=== PATIENT | male | born 1960 | race Caucasian/White ===

== ENCOUNTER 2020-01-12 09:11 | Outpatient (CLI) | payer OTHER, SELFPAY ==
--- NOTE | ~2020-01-12 | CT_ITS ---
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 The dose-length product (DLP) was 385.45 mGy-cm. Automated exposure control and iterative reconstruction technique were employed. COMPARISON: 03/11/2019, 05/30/2017 FINDINGS: CHEST CT: There are stable changes of esophagectomy and gastric pull-through. There is mild emphysema. Small pl eural effusions are stable. There is minimal dependent atelectasis. Stable nodules of the lung apices are most likely benign. No pathologically enlarged thoracic lymph nodes are identified. The heart si ze is normal. There is mild thoracic spondylosis. ABDOMEN/PELVIS CT: The liver, spleen, pancreas, gallbladder, and right adrenal gland are normal. There is a stable 1.3 c m adenoma of the left adrenal gland. A 1.6 cm cyst is present in the left kidney. The right kidney is normal. No pathologically enlarged abdominal or pelvic lymph nodes are identified. There is no free intraperitoneal gas or evidence of bowel obstruction. IMPRESSION: 1. No evidence of recurrent or metastatic disease. Reviewed, dictated and finalized at location A.
[2020-01-12 09:55] LABS: Estimated Glomerular Filt Rate > 60
== END 2020-01-12 09:12 | disposition home or self-care (01) ==
LOC: ANHIMG 09:22
PROVIDERS: PCP Family Medicine; Referring Provider Internal Medicine Medical Oncology; Visit Provider Radiology Radiation Oncology
DX: C15.5 Malignant neoplasm of lower third of esophagus (principal)
CPT/HCPCS: 36415; 71260; 74177; Q9967

== ENCOUNTER 2020-09-29 11:47 | Outpatient (CLI) | payer OTHER, SELFPAY ==
--- NOTE | ~2020-09-29 | US_ITS ---
EXAMINATION: US venous doppler LE RT EXAM DATE: 09/29/2020 12:29 INDICATION: Right leg edema. TECHNIQUE: Multiple grayscale, color flow and Doppler images of the right lower extremity deep venous system were obtained and reviewed. Comparison is made to prior examination from 04/24/2016. FINDINGS: The right common femoral, femoral and profunda veins demonstrate normal color flow, respira tory variation, augmentation and compressibility. Compressibility, color flow confirmed within the r ight popliteal, posterior tibial, peroneal, and greater saphenous veins. IMPRESSION: 1. No right lower extremity deep venous thrombosis. Reviewed, dictated and finalized at location B.
== END 2020-09-29 11:48 | disposition home or self-care (01) ==
LOC: ANHIMG 11:56
PROVIDERS: PCP Family Medicine; Visit Provider Family Medicine
DX: R60.0 Localized edema (principal); M25.50 Pain in unspecified joint
CPT/HCPCS: 93971

== ENCOUNTER 2021-02-01 13:21 | Outpatient (CLI) | payer OTHER, SELFPAY ==
--- NOTE | ~2021-02-01 | CT_ITS ---
EXAMINATION: CT chest abdomen pelvis w con EXAM DATE: 02/01/2021 13:51 INDICATION: Esophageal malignancy. TECHNIQUE: Spiral CT of the chest, abdomen and pelvis was performed following intravenous injection o f 100 mL Omnipaque 350. Axial, coronal and sagittal images chest, abdomen and pelvis were reviewed. Coronal maximum intensity pixel images of chest reviewed. The dose-length product (DLP) for this ex amination was 268.86 mGy-cm. The exposure was tailored according to patient size (auto mA exposure c ontrol), and iterative reconstruction (ASIR) was used as additional dose reduction technique. Compari son is made to prior examination from 01/12/2020. FINDINGS: CHEST: Gastroesophageal surgical changes, pull-through. No evidence of local recurrence. Chronic tr junior right pleural effusion and right lower lobe dependent atelectasis/scarring. Mild emphysema. Trac heobronchial tree is patent. There is no mediastinal, hilar or axillary lymphadenopathy. There is no pneumothorax. Heart normal in size. There is mild coronary arterial calcification, arterial s clerosis. ABDOMEN PELVIS: Left adrenal gland has approximately 1.5 cm nodule, stable. Could be adenoma. The cata er, spleen, and pancreas are unremarkable. Gallbladder is unremarkable. No biliary obstruction. Po rtal and splenic veins are patent. Kidneys enhance symmetrically. There is no hydronephrosis. The prostate is unremarkable. Some diffuse bladder wall thickening, could indicate chronic cystitis. Ac shelli cystitis not excludable. There is no retroperitoneal or pelvic lymphadenopathy. There is mild scattered arteriosclerotic disease. The appendix is normal. The stomach and small bowel are unremarkable. There is expected amount of c olonic stool. No free intraperitoneal gas. There are no osteoblastic or osteolytic lesions identi fied. IMPRESSION: No evidence local recurrence or metastatic disease. Reviewed, dictated and finalized at location A.
[2021-02-01 13:46] LABS: Estimated Glomerular Filt Rate > 60
== END 2021-02-01 13:22 | disposition home or self-care (01) ==
LOC: ANHIMG 13:23
PROVIDERS: PCP Family Medicine; Visit Provider Physician Assistant Medical
DX: C15.9 Malignant neoplasm of esophagus, unspecified (principal); R63.4 Abnormal weight loss
CPT/HCPCS: 71260; 74177; Q9967

== ENCOUNTER 2022-09-09 18:48 | Emergency (ER) | payer MEDICARE, OTHER, SELFPAY ==
--- NOTE | ~2022-09-09 | XR_ITS ---
XR tibia fibula LT 2V, XR ankle LT min 3V 09/09/2022 19:35 INDICATION: Left leg and ankle pain PROCEDURE: 2 views left tibia/fibula and 4 views left ankle COMPARISON: No prior studies for comparison. FINDINGS: Fracture, dislocation or subluxation is not identified. The soft tissues appear within norm al limits. No foreign bodies are identified. IMPRESSION: 1: NO ACUTE BONE OR JOINT ABNORMALITY IDENTIFIED. Reviewed, dictated and finalized at location A. IMPRESSION: 1: NO ACUTE BONE OR JOINT ABNORMALITY IDENTIFIED.
[2022-09-09 18:54] VITALS: BP 105/54; PULSE 107; RESP 16; TEMP 36.8; O2SAT 100
--- NOTE | 2022-09-09 20:35 | ED.LOWEXIN ---
HPI - Extremity Injury (Lower) General Chief Complaint: Extremity Injury, Lower <Dianna Negrete PA-C - Last Filed: 09/09/22 20:57> Stated Complaint: left leg pain <Dianna Negrete PA-C - Last Filed: 09/09/22 20:57> Time Seen by Provider: 09/09/22 20:27 <Dianna Negrete PA-C - Last Filed: 09/09/22 20:57> History of Present Illness HPI Narrative: 62-year-old male with a history of esophageal cancer reports for evaluation of left lower extremity pain for 5 days. Patient states 5 days ago, he was trying to step over the docs inside his house and hit his left anterior schmidt, then again the same thing happened 2 days later. He is reporting an abrasion to his left anterior schmidt, pain and edema to his schmidt and ankle. Reports he did not injure his ankle, the ecchymosis is secondary to gravity. He is unsure of his last tetanus shot. Patient did not hit his head or lose consciousness. Reports he has been ambulating at home with a cane. He has not taken anything for pain. He reports he is prescribed oxycodone for pain as needed. <Dianna Negrete PA-C - Last Filed: 09/09/22 20:57> Related Data Home Medications: Home Medications Medication Instructions Recorded Confirmed cardioplegic no.20 (maint 4:1) 20 ml perfusion 05/28/21 05/28/21 mEq/810 mL (potassium) perfusion (Cardioplegia Maintenance 4:1) furosemide 20 mg tablet 10 mg PO QAM 05/28/21 05/28/21 gabapentin 600 mg tablet 600 mg PO BID 05/28/21 05/28/21 megestrol 625 mg/5 mL (125 mg/mL) 625 mg PO DAILY 05/28/21 05/28/21 oral suspension mirtazapine 15 mg tablet 15 mg PO DAILY 05/28/21 05/28/21 omeprazole 40 mg capsule,delayed 40 mg PO BID 05/28/21 05/28/21 release oxycodone 5 mg capsule 5 mg PO Q8H PRN 05/28/21 05/28/21 pramipexole 1 mg tablet 1 mg PO QHS 05/28/21 05/28/21 sumatriptan succinate 100 mg tablet 100 mg PO ONCE 05/28/21 05/28/21 <Dianna Negrete PA-C - Last Filed: 09/09/22 20:57> Allergies/Adverse Reactions: Allergies Allergy/AdvReac Type Severity Reaction Status Date / Time No Known Allergies Allergy Verified 05/28/21 09:03 <Dianna Negrete PA-C - Last Filed: 09/09/22 20:57> Review of Systems Review of Systems: CONSTITUTIONAL: Denies fever, chills EYES: Denies visual changes, redness, or discharge. ENT: Denies rhinorrhea, congestion, sore throat, or otalgia. CARDIOVASCULAR: Denies chest pain, palpitations, or edema. RESPIRATORY: Denies cough or dyspnea. GASTROINTESTINAL: Denies abdominal pain, nausea, vomiting, or diarrhea. GENITOURINARY: Denies dysuria or hematuria. SKIN: Denies rash or itching. MUSCULOSKELETAL: See HPI NEUROLOGIC: Denies headache, numbness, dizziness, or weakness. PSYCHIATRIC: Denies anxiety or depression. <Dianna Negrete PA-C - Last Filed: 09/09/22 20:57> PMFSH Past Medical History Medical History: Medical History Esophageal cancer Head ache <Dianna Negrete PA-C - Last Filed: 09/09/22 20:57> Social History Social History: Social History Smoking packs per day: 5 Smoking cigarettes per day: 100.0 Smoking status: Current some day smoker Alcohol intake: current Alcohol use details: social Substance use: never <Dianna Negrete PA-C - Last Filed: 09/09/22 20:57> Exam Narrative: GENERAL: Well-appearing, well-nourished, and in no acute distress. Patient resting comfortably in the exam bed. He is pleasant and conversational. HEAD: Normocephalic, atraumatic. EYES: PERRLA and EOMI. ENT: Nares clear, no rhinorrhea or epistaxis. Mucous membranes moist. Oropharynx without tonsillar hypertrophy exudate or other lesions. NECK: Supple. No adenopathy or masses. CHEST: Clear to auscultation. No respiratory distress. No wheezes rales or rhonchi HEART: Regular rate and rhythm. No murmur heard. Normal peripheral pulses. EXTREMIT
[2022-09-09] MEDS: ACETAMINOPHEN 500 MG TABLET 1000 MG PO (20:50)
[2022-09-09] MEDS: TETANUS,DIPHTHERIA,AC PERTUSSIS ADULT (0.5 ML) BOOSTRIX IM (20:51)
[2022-09-09] MEDS: CYCLOBENZAPRINE HCL 10 MG TABLET PO (20:51)
[2022-09-09 21:03] VITALS: BP 109/59; PULSE 84; RESP 16; O2SAT 99
== END 2022-09-09 21:06 | disposition home or self-care (01) ==
PROVIDERS: Emergency Provider Physician Assistant; PCP Family Medicine
DX: S80.12XA Contusion of left lower leg, initial encounter (principal); Z23 Encounter for immunization; F17.210 Nicotine dependence, cigarettes, uncomplicated; W22.8XXA Striking against or struck by other objects, initial encounter
CPT/HCPCS: 73590; 73610; 90471; 90715; 99283; A9270

== ENCOUNTER 2024-08-20 16:30 | Emergency (ER) | payer MEDICARE, OTHER, SELFPAY ==
--- NOTE | ~2024-08-20 | XR_ITS ---
XR shoulder LT min 2V Ordering provider: Suellen Arce PA-C History: . fall . Comparison: July 31, 2016 FINDINGS: BONES: Fracture of the proximal metaphysis of the left humerus. JOINT SPACES: The acromioclavicular joint is normal. The glenohumeral joint is normal. SOFT TISSUES: Left pleural effusion with adjacent atelectasis. IMPRESSION: Fracture of the surgical neck of the left humerus. Reviewed, dictated and finalized at location A.
--- NOTE | ~2024-08-20 | XR_ITS ---
XR elbow LT 2V Ordering provider: Nolan Daniel MD History: . fall, skin tear . Comparison: None. FINDINGS: BONES: No acute fracture or dislocation. JOINT SPACES: Normal. SOFT TISSUES: Normal. No definite joint effusion. IMPRESSION: No acute osseous abnormality left elbow. Reviewed, dictated and finalized at location A.
[2024-08-20 16:31] VITALS: BP 96/50; PULSE 79; RESP 18; TEMP 36.4; O2SAT 98
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
--- OUTSIDE RECORDS SUMMARY | 2024-08-20 16:32 | XMS_ITS | Continuity of Care Document ---
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 Location Location Details Encounter Type Encounter Number Reason For Visit Attending Provider ADM Date DC Date Status Disposition Source [facility] Outpatient Encounter [id number] 7 01/12 [facility] N
--- OUTSIDE RECORDS SUMMARY | 2024-08-20 16:32 | XMS_ITS | Data Portability ---
Author Organization [facility] [employer], Main Office Address [address] [place] [address] Assessment No assessment recorded. Plan of Treatment Reminders Order Date Submit Date Provider Last Modified By Organization Details Last Modified Time Details Appointments Any 2024 08:00A Connie Gerber NP Not available Not available Not available Lab glycohemo globin, total, blood [address] [place] [address] (Lab), [address] [place], [address], 06/21/2024 08:06:14 vitamin D, 25-hydrox y, total, serum [email or web address] [place] [address] (Lab), [address] [place], [address], 06/21/2024 08:06:14 lipid panel, serum 2024 [email or web address] [place] [address] (Lab), [address] [place], [address], 06/21/2024 08:06:15 CMP, serum or plasma 2024 [email or web address] [place] [address] (Lab), [address] [place], [address], 06/21/2024 08:06:15 CBC w/ auto diff 2024 [email or web address] [place] [address] (Lab), [address] [place], [address], 06/21/2024 08:06:14 iron + total iron-bind ing capacity (TIBC), serum [address] (Lab), [address] [place], [address], 06/21/2024 08:06:14 PSA, serum or plasma [address] (Lab), [address] [place], [address], 06/21/2024 08:06:14 testoster one, free + total, serum [address] (Lab), [address] [place], [address], 05/04/2024 11:59:42 TSH, serum or plasma [address] (Lab), [address] [place], [address], 05/04/2024 11:58:40 T3, free, serum or plasma [address] (Lab), [address] [place], [address], 05/04/2024 10:32:02 vitamin B1 (thiamine ), blood 2023 024 Not available 08/21/2023 09:59:36 vitamin D3, 25-hydrox y, serum 2023 024 Not available 08/21/2023 10:00:34 BMP, serum or plasma 2023 024 Not available 08/21/2023 10:00:13 magnesium , serum or plasma 2023 024 Not available 08/21/2023 10:00:23 CBC w/ auto diff 2023 024 Not available 08/21/2023 10:00:44 ferritin, serum or plasma 2023 024 Not available 08/21/2023 10:00:56 iron + total iron-bind ing capacity (TIBC), serum 2023 024 Not available 08/21/2023 10:01:07 vitamin B12, serum 2023 024 Not available 08/21/2023 10:00:02 vitamin B1 (thiamine ), blood 2022 023 77 Not available 04/29/2023 07:50:14 BMP, serum or plasma 2022 023 [email or web address] Not available 04/22/2023 19:44:03 magnesium , serum or plasma 2022 023 ZABRINA Not available 04/22/2023 19:44:48 CBC w/ auto diff 2022 023 ZABRINA Not available 04/22/2023 20:09:02 ferritin, serum or plasma 2022 023 ZABRINA Not available 04/22/2023 20:16:23 iron + total iron-bind ing capacity (TIBC), serum 2022 023 ZABRINA Not available 04/22/2023 19:43:27 vitamin D3, 25-hydrox y, serum 2022 023 ZABRINA Not available 04/22/2023 20:42:22 vitamin B12, serum 2022 023 ZABRINA Not available 04/22/2023 20:31:43 Referral physical therapist referral - *Please call pt to schedule* 2023 024 ZABRINA [facility] [address] , [place], [address], 01/11/2024 12:48:[address] referral - Please call patient to schedule an appointme nt. Thank you. [email or web address] [facility] [address], [place], [address], 02/02/2024 08:47:56 Procedures nerve conductio n study/EMG , upper extremity (PROC) 2023 024 [email or web address] Not available 04/01/2024 09:27:20 Surgeries None recorded. Imaging None recorded. Medication Orders cyprohept adine 4 mg tablet 2023 024 [id number], [address], [place], [place], [id number], 05/04/2024 10:21:08 cyanocoba laney (vit B-12) 1,000 mcg/mL injection solution 2023 024 [email or web address] 77 Not available 06/14/2024 08:47:28 cyanocoba laney (vit B-12) 1,000 mcg/mL injection solution 2022 023 [email or web address] 77 Not available 06/14/2024 08:47:28 Patient TargetsNo targets recorded. Patient InstructionsNo instructions recorded. Reason for Referral Physical Therapist Referral for Weakness of left hand eval and treat left wrist/hand weakness *Please call pt to schedule* Referring Physician: [facility], Encounter Date: 01/02/2024 Neurologist Referral for [place] of left hand new weakness to left hand Please call patient to schedule an appointment. Thank you. Referring Physician: [facility], Encounter Date: 01/02/2024 Results Created Date Observation Date Name Description Value Unit Range Abnormal Flag Note LastModifiedBy Organization Detail LastModifiedTime 04/22/20 23 04/22/2023 TEST NOT PERFO RMED test not performed SEE COMMEN T VITAM IN B1 NOT PERFO RMED. SPECI MEN NOT PROTE CTED FROM LIGHT PLEAS E RECOL LECT Not Available [facility] (Lab) [address] [place], [address], 04/22/2023 19:26:29 04/22/2004/22/2023 IRON/ TIBC PANEL total iron binding capacity 332 mcg/d L 265-47 5 Not Available [facility] (Lab) [address] [place], [address], 04/22/2023 19:52:13 04/22/20 23 04/22/2023 IRON/ TIBC PANEL % transferrin saturation 17 % 20-55 low Not Available [facility] (Lab) [address] [place], [address], 04/22/2023 19:52:13 04/22/20 23 04/22/2023 IRON/ TIBC PANEL unsaturated iron bind capacity 274 mcg/d L 126-38 2 Not Available [facility] (Lab) [address] [place], [address], 04/22/2023 19:52:13 04/22/20 23 04/22/2023 IRON/ TIBC PANEL iron 58 mcg/d L 42-175 Not Available [facility] (Lab) [address] [place], [address], 04/22/2023 19:52:13 04/22/20 23 04/22/2023 BASIC METAB OLIC PANEL sodium 138 mmol/ L 137-14 5 Not Available [facility] (Lab) [address] [place], [address], 04/22/2023 19:44:03 04/22/20 23 04/22/2023 BASIC METAB OLIC PANEL potassium 3.7 mmol/ L 3.5-5. 1 Not Available [facility] (Lab) [address] [place], [address], 04/22/2023 19:44:03 04/22/20 23 04/22/2023 BASIC METAB OLIC PANEL chloride 104 mmol/ L 98-107 Not Available [facility] (Lab) [address] [place], [address], 04/22/2023 19:44:03 04/22/20 23 04/22/2023 BASIC METAB OLIC PANEL carbon dioxide 30 mmol/ L 22-30 Not Available [facility] (Lab) [address] [place], [address], 04/22/2023 19:44:03 04/22/20 23 04/22/2023 BASIC METAB OLIC PANEL anion gap 7.7 mmol/ L 14-22 low Not Available [facility] (Lab) [address] [place], [address], 04/22/2023 19:44:03 04/22/20 23 04/22/2023 BASIC METAB OLIC PANEL glucose 104 mg/dL 70-99 high Not Available [facility] (Lab) [address] [place], [address], 04/22/2023 19:44:03 04/22/20 23 04/22/2023 BASIC METAB OLIC PANEL BUN 13 mg/dL 8-19 Not Available [facility] (Lab) [address] [place], [address], 04/22/2023 19:44:03 04/22/20 23 04/22/2023 BASIC METAB OLIC PANEL creatinine 0.66 mg/dL 0.66-1 .25 Not Available [facility] (Lab) [address] [place], [address], 04/22/2023 19:44:03 04/22/20 23 04/22/2023 BASIC METAB OLIC PANEL GFR >60 Refer ence Range : [place] GFR Healt hy Adult : >60 mL/mi n/1.7 3 m2 Chron ic Kidne y Disea se: 15-60 mL/mi n/1.7 3 m2 Kidne y Failu re: <15/m L/min /1.73 m2 www.n iddk. nih.g ov The MDRD study equat ion has not been valid ated in child nataliya <18 years of age; pregn ant women ; the elder ly >85 years of age; or in some racia l or ethni c subgr oups, such as Hispa nics. Outsi de the valid ated qiana eters , estim ated GFR is less accur ate, requi ring clini karri judgm ent on a case- by-ca se basis . Clini karri inter preta tion for other races and ages must be made by the clini mic. The MDRD study equat ion has not been valid ated for the evalu ation of serum creat inine relat ed to nutri ana l statu s or medic ation usage . For perso ns <18 years of age, a pedia tric GFR calcu lator is avail able on the [facility] websi te: https ://aleksandar w.kid shadia.o rg/pr ofess ional s/kdo qi/gf r_cal culat or Not Available [facility] (Lab) [address] [place], [address], 04/22/2023 19:44:03 04/22/20 23 04/22/2023 BASIC METAB OLIC PANEL calcium 9.1 mg/dL 8.4-10 .2 Not Available [facility] (Lab) [address] [place], [address], 04/22/2023 19:44:03 04/22/20 23 04/22/2023 MAGNE SIUM magnesium 2.0 mg/dL 1.6-2. 3 Not Available [facility] (Lab) [address] [place], [address], 04/22/2023 19:44:48 04/22/20 23 04/22/2023 CBC/C OMPLE TE BLD COUNT W/DIF F white blood cells 4.7 x10'3 /uL 4.2-10 .8 Not Available [facility] (Lab) [address] [place], [address], 04/22/2023 20:09:02 04/22/20 23 04/22/2023 CBC/C OMPLE TE BLD COUNT W/DIF F red blood cells 4.07 x10'6 /uL 4.10-5 .80 low Not Available [facility] (Lab) [address] [facility] [place], [address], 04/22/2023 20:09:02 04/22/20 23 04/22/2023 CBC/C OMPLE TE BLD COUNT W/DIF F hemoglobin 12.8 g/dL 13.2-1 7.0 low Not Available [facility] (Lab) [address] [place], [address], 04/22/2023 20:09:02 04/22/20 23 04/22/2023 CBC/C OMPLE TE BLD COUNT W/DIF F hematocrit 39.1 % 39.3-5 0.0 low Not Available [facility] (Lab) [address] [place], [address], 04/22/2023 20:09:02 04/22/20 23 04/22/2023 CBC/C OMPLE TE BLD COUNT W/DIF F mean red cell volume 96.1 fL 80.0-9 7.0 Not Available [facility] (Lab) [address] [place], [address], 04/22/2023 20:09:02 04/22/20 23 04/22/2023 CBC/C OMPLE TE BLD COUNT W/DIF F mean red cell hemoglobin 31.4 pg 27.0-3 3.0 Not Available [facility] (Lab) [address] [place], [address], 04/22/2023 20:09:02 04/22/20 23 04/22/2023 CBC/C OMPLE TE BLD COUNT W/DIF F mean RBC HGB concentratio n 32.7 g/dL 31.0-3 6.0 Not Available [facility] (Lab) [address] [place], [address], 04/22/2023 20:09:02 04/22/20 23 04/22/2023 CBC/C OMPLE TE BLD COUNT W/DIF F red cell distribution width 15.3 % 11.8-1 5.5 Not Available [facility] (Lab) [address] [place], [address], 04/22/2023 20:09:02 04/22/20 23 04/22/2023 CBC/C OMPLE TE BLD COUNT W/DIF F platelets 238 x10'3 /uL 150-40 0 Not Available [facility] (Lab) [address] [place], [address], 04/22/2023 20:09:02 04/22/20 23 04/22/2023 CBC/C OMPLE TE BLD COUNT W/DIF F mean platelet volume 11.2 fL 9.0-12 .4 Not Available [facility] (Lab) [address] [place], [address], 04/22/2023 20:09:02 04/22/20 23 04/22/2023 CBC/C OMPLE TE BLD COUNT W/DIF F neutrophils 59.3 % 39.0-7 2.0 Not Available [facility] (Lab) [address] [place], [address], 04/22/2023 20:09:02 04/22/20 23 04/22/2023 CBC/C OMPLE TE BLD COUNT W/DIF F lymphocytes 23.9 % 16.0-4 7.0 Not Available [facility] (Lab) [address] [facility] [place], [address], 04/22/2023 20:09:02 04/22/20 23 04/22/2023 CBC/C OMPLE TE BLD COUNT W/DIF F monocytes 11.0 % 5.0-12 .0 Not Available [facility] (Lab) [address] [place], [address], 04/22/2023 20:09:02 04/22/2004/22/2023 CBC/C OMPLE TE BLD COUNT W/DIF F eosinophils 4.5 % 1.0-7. 0 Not Available [facility] (Lab) [address] [facility] [place], [address], 04/22/2023 20:09:02 04/22/20 23 04/22/2023 CBC/C OMPLE TE BLD COUNT W/DIF F basophils 1.1 % 0.0-2. 0 Not Available [facility] (Lab) [address] [facility] [place], [address], 04/22/2023 20:09:02 04/22/20 23 04/22/2023 CBC/C OMPLE TE BLD COUNT W/DIF F immature granulocytes 0.2 % 0.00-0 .50 Not Available [facility] (Lab) [address] [facility] [place], [address], 04/22/2023 20:09:02 04/22/20 23 04/22/2023 CBC/C OMPLE TE BLD COUNT W/DIF F neutrophils, absolute count 2.76 x10'3 /uL 1.5-8. 0 Not Available [facility] (Lab) [address] [place], [address], 04/22/2023 20:09:02 04/22/20 23 04/22/2023 CBC/C OMPLE TE BLD COUNT W/DIF F lymphocytes, absolute count 1.11 x10'3 /uL 1.07-3 .43 Not Available [facility] (Lab) [address] [place], [address], 04/22/2023 20:09:02 04/22/20 23 04/22/2023 CBC/C OMPLE TE BLD COUNT W/DIF F monocytes, absolute count 0.51 x10'3 /uL 0.29-0 .99 Not Available [facility] (Lab) [address] [place], [address], 04/22/2023 20:09:02 04/22/20 23 04/22/2023 CBC/C OMPLE TE BLD COUNT W/DIF F eosinophils, absolute count 0.21 x10'3 /uL 0.02-0 .53 Not Available [facility] (Lab) [address] [place], [address], 04/22/2023 20:09:02 04/22/20 23 04/22/2023 CBC/C OMPLE TE BLD COUNT W/DIF F basophils, absolute count 0.05 x10'3 /uL 0.01-0 .08 Not Available [facility] (Lab) [address] [place], [address], 04/22/2023 20:09:02 04/22/20 23 04/22/2023 CBC/C OMPLE TE BLD COUNT W/DIF F immature granulocytes ,absolute 0.01 x10'3 /uL 0.00-0 .05 Not Available [facility] (Lab) [address] [place], [address], 04/22/2023 20:09:02 04/22/20 23 04/22/2023 CBC/C OMPLE TE BLD COUNT W/DIF F nucleated red blood cells 0.0 % -0 Not Available [facility] (Lab) [address] [place], [address], 04/22/2023 20:09:02 04/22/20 23 04/22/2023 CBC/C OMPLE TE BLD COUNT W/DIF F NRBC# 0.00 x10'3 /uL Not Available [facility] (Lab) [address] [place], [address], 04/22/2023 20:09:02 04/22/20 23 04/22/2023 DEE TIN ferritin 19 NG/mL 17.9-4 64 Not Available [facility] (Lab) [address] [place], [address], 04/22/2023 20:16:23 04/22/20 23 04/22/2023 VITAM IN B12 (ESE LANEY ) vb12 416 pg/mL 239-93 1 Not Available [facility] (Lab) [address] [place], [address], 04/22/2023 20:31:43 04/22/20 23 04/22/2023 VITAM IN D 25-HY DROXY vd25oh 28.1 NG/mL 30-100 low Vitam in D Statu s: Defic ient: <20 ng/mL Insuf ficie nt: 20-29 ng/mL Suffi cient : 30-10 0 ng/mL Not Available [facility] (Lab) [address] [place], [address], 04/22/2023 20:42:22 08/21/19 24 08/21/2023 BASIC METAB OLIC PANEL sodium 141 mmol/ L 137-14 5 Not Available [facility] (Lab) [address] [place], [address], 08/21/2023 21:16:42 08/21/19 24 08/21/2023 BASIC METAB OLIC PANEL potassium 4.0 mmol/ L 3.5-5. 1 Not Available [facility] (Lab) [address] [place], [address], 08/21/2023 21:16:42 08/21/19 24 08/21/2023 BASIC METAB OLIC PANEL chloride 106 mmol/ L 98-107 Not Available [facility] (Lab) [address] [place], [address], 08/21/2023 21:16:42 08/21/19 24 08/21/2023 BASIC METAB OLIC PANEL carbon dioxide 31 mmol/ L 22-30 high Not Available [facility] (Lab) [address] [place], [address], 08/21/2023 21:16:42 08/21/19 24 08/21/2023 BASIC METAB OLIC PANEL anion gap 8.0 mmol/ L 14-22 low Not Available [facility] (Lab) [address] [place], [address], 08/21/2023 21:16:42 08/21/19 24 08/21/2023 BASIC METAB OLIC PANEL glucose 95 mg/dL 70-99 Not Available [facility] (Lab) [address] [place], [address], 08/21/2023 21:16:42 08/21/19 24 08/21/2023 BASIC METAB OLIC PANEL BUN 13 mg/dL 8-19 Not Available [facility] (Lab) [address] [place], [address], 08/21/2023 21:16:42 08/21/19 24 08/21/2023 BASIC METAB OLIC PANEL creatinine 0.67 mg/dL 0.66-1 .25 Not Available [facility] (Lab) [address] [place], [address], 08/21/2023 21:16:42 08/21/19 24 08/21/2023 BASIC METAB OLIC PANEL GFR >60 Refer ence Range : [place] GFR Healt hy Adult : >60 mL/mi n/1.7 3 m2 Chron ic Kidne y Disea se: 15-60 mL/mi n/1.7 3 m2 Kidne y Failu re: <15/m L/min /1.73 m2 www.n iddk. nih.g ov The MDRD study equat ion has not been valid ated in child nataliya <18 years of age; pregn ant women ; the elder ly >85 years of age; or in some racia l or ethni c subgr oups, such as Hispa nics. Outsi de the valid ated qiana eters , estim ated GFR is less accur ate, requi ring clini karri judgm ent on a case- by-ca se basis . Clini karri inter preta tion for other races and ages must be made by the clini mci. The MDRD study equat ion has not been valid ated for the evalu ation of serum creat inine relat ed to nutri ana l statu s or medic ation usage . For perso ns <18 years of age, a pedia tric GFR calcu lator is avail able on the [facility] websi te: https ://ww w.kid shadia.o rg/pr ofess ional s/kdo qi/gf r_cal culat or Not Available [facility] (Lab) [address] [place], [address], 08/21/2023 21:16:42 08/21/19 24 08/21/2023 BASIC METAB OLIC PANEL calcium 9.0 mg/dL 8.4-10 .2 Not Available [facility] (Lab) [address] [place], [address], 08/21/2023 21:16:42 08/21/19 24 08/21/2023 MAGNE SIUM magnesium 1.9 mg/dL 1.6-2. 3 Not Available [facility] (Lab) [address] [place], [address], 08/21/2023 21:16:47 08/21/19 24 08/21/2023 VITAM IN D 25-HY DROXY vd25oh 14.8 NG/mL 30-100 low Vitam in D Statu s: Defic ient: <20 ng/mL Insuf ficie nt: 20-29 ng/mL Suffi cient : 30-10 0 ng/mL Not Available [facility] (Lab) [address] [place], [address], 08/21/2023 21:49:00 08/21/19 24 08/21/2023 IRON/ TIBC PANEL total iron binding capacity 336 mcg/d L 265-47 5 Not Available [facility] (Lab) [address] [place], [address], 08/21/2023 22:00:21 08/21/19 24 08/21/2023 IRON/ TIBC PANEL % transferrin saturation 31 % 20-55 Not Available [facility] (Lab) [address] [place], [address], 08/21/2023 22:00:21 08/21/19 24 08/21/2023 IRON/ TIBC PANEL unsaturated iron bind capacity 233 mcg/d L 126-38 2 Not Available [facility] (Lab) [address] [place], [address], 08/21/2023 22:00:21 08/21/19 24 08/21/2023 IRON/ TIBC PANEL iron 103 mcg/d L 42-175 Not Available [facility] (Lab) [address] [place], [address], 08/21/2023 22:00:21 08/21/19 24 08/21/2023 DEE TIN ferritin 23 NG/mL 17.9-4 64 Not Available [facility] (Lab) [address] [place], [address], 08/21/2023 22:07:49 08/21/19 24 08/21/2023 VITAM IN B12 (ESE LANEY ) vb12 898 pg/mL 239-93 1 Not Available [facility] (Lab) [address] [place], [address], 08/21/2023 22:26:05 08/21/19 24 08/21/2023 CBC/C OMPLE TE BLD COUNT W/DIF F white blood cells 4.9 x10'3 /uL 4.2-10 .8 Not Available [facility] (Lab) [address] [place], [address], 08/22/2023 00:19:48 08/21/19 24 08/21/2023 CBC/C OMPLE TE BLD COUNT W/DIF F red blood cells 3.99 x10'6 /uL 4.10-5 .80 low Not Available [facility] (Lab) [address] [place], [address], 08/22/2023 00:19:48 08/21/19 24 08/21/2023 CBC/C OMPLE TE BLD COUNT W/DIF F hemoglobin 12.7 g/dL 13.2-1 7.0 low Not Available [facility] (Lab) [address] [place], [address], 08/22/2023 00:19:48 08/21/19 24 08/21/2023 CBC/C OMPLE TE BLD COUNT W/DIF F hematocrit 37.2 % 39.3-5 0.0 low Not Available [facility] (Lab) [address] [place], [address], 08/22/2023 00:19:48 08/21/19 24 08/21/2023 CBC/C OMPLE TE BLD COUNT W/DIF F mean red cell volume 93.2 fL 80.0-9 7.0 Not Available [facility] (Lab) [address] [place], [address], 08/22/2023 00:19:48 08/21/19 24 08/21/2023 CBC/C OMPLE TE BLD COUNT W/DIF F mean red cell hemoglobin 31.8 pg 27.0-3 3.0 Not Available [facility] (Lab) [address] [place], [address], 08/22/2023 00:19:48 08/21/19 24 08/21/2023 CBC/C OMPLE TE BLD COUNT W/DIF F mean RBC HGB concentratio n 34.1 g/dL 31.0-3 6.0 Not Available [facility] (Lab) [address] [place], [address], 08/22/2023 00:19:48 08/21/19 24 08/21/2023 CBC/C OMPLE TE BLD COUNT W/DIF F red cell distribution width 14.0 % 11.8-1 5.5 Not Available [facility] (Lab) [address] [place], [address], 08/22/2023 00:19:48 08/21/19 24 08/21/2023 CBC/C OMPLE TE BLD COUNT W/DIF F platelets 249 x10'3 /uL 150-40 0 Not Available [facility] (Lab) [address] [place], [address], 08/22/2023 00:19:48 08/21/19 24 08/21/2023 CBC/C OMPLE TE BLD COUNT W/DIF F mean platelet volume 10.7 fL 9.0-12 .4 Not Available [facility] (Lab) [address] [place], [address], 08/22/2023 00:19:48 08/21/19 24 08/21/2023 CBC/C OMPLE TE BLD COUNT W/DIF F neutrophils 66.5 % 39.0-7 2.0 Not Available [facility] (Lab) [address] [place], [address], 08/22/2023 00:19:48 08/21/19 24 08/21/2023 CBC/C OMPLE TE BLD COUNT W/DIF F lymphocytes 19.0 % 16.0-4 7.0 Not Available [facility] (Lab) [address] [place], [address], 08/22/2023 00:19:48 08/21/19 24 08/21/2023 CBC/C OMPLE TE BLD COUNT W/DIF F monocytes 9.2 % 5.0-12 .0 Not Available [facility] (Lab) [address] [place], [address], 08/22/2023 00:19:48 08/21/19 24 08/21/2023 CBC/C OMPLE TE BLD COUNT W/DIF F eosinophils 3.9 % 1.0-7. 0 Not Available [facility] (Lab) [address] [place], [address], 08/22/2023 00:19:48 08/21/19 24 08/21/2023 CBC/C OMPLE TE BLD COUNT W/DIF F basophils 1.2 % 0.0-2. 0 Not Available [facility] (Lab) [address] [place], [address], 08/22/2023 00:19:48 08/21/19 24 08/21/2023 CBC/C OMPLE TE BLD COUNT W/DIF F immature granulocytes 0.2 % 0.00-0 .50 Not Available [facility] (Lab) [address] [place], [address], 08/22/2023 00:19:48 08/21/19 24 08/21/2023 CBC/C OMPLE TE BLD COUNT W/DIF F neutrophils, absolute count 3.25 x10'3 /uL 1.5-8. 0 Not Available [facility] (Lab) [address] [place], [address], 08/22/2023 00:19:48 08/21/19 24 08/21/2023 CBC/C OMPLE TE BLD COUNT W/DIF F lymphocytes, absolute count 0.93 x10'3 /uL 1.07-3 .43 low Not Available [facility] (Lab) [address] [place], [address], 08/22/2023 00:19:48 08/21/19 24 08/21/2023 CBC/C OMPLE TE BLD COUNT W/DIF F monocytes, absolute count 0.45 x10'3 /uL 0.29-0 .99 Not Available [facility] (Lab) [address] [place], [address], 08/22/2023 00:19:48 08/21/19 24 08/21/2023 CBC/C OMPLE TE BLD COUNT W/DIF F eosinophils, absolute count 0.19 x10'3 /uL 0.02-0 .53 Not Available [facility] (Lab) [address] [place], [address], 08/22/2023 00:19:48 08/21/19 24 08/21/2023 CBC/C OMPLE TE BLD COUNT W/DIF F basophils, absolute count 0.06 x10'3 /uL 0.01-0 .08 Not Available [facility] (Lab) [address] [place], [address], 08/22/2023 00:19:48 08/21/19 24 08/21/2023 CBC/C OMPLE TE BLD COUNT W/DIF F immature granulocytes ,absolute 0.01 x10'3 /uL 0.00-0 .05 Not Available [facility] (Lab) [address] [place], [address], 08/22/2023 00:19:48 08/21/19 24 08/21/2023 CBC/C OMPLE TE BLD COUNT W/DIF F nucleated red blood cells 0.0 % -0 Not Available [facility] (Lab) [address] [place], [address], 08/22/2023 00:19:48 08/21/19 24 08/21/2023 CBC/C OMPLE TE BLD COUNT W/DIF F NRBC# 0.00 x10'3 /uL Not Available [facility] (Lab) [address] [place], [address], 08/22/2023 00:19:48 08/21/19 24 08/25/2023 TEST NOT PERFO RMED test not performed COMMEN T VITAM IN B1 TESTI NG NOT PERFO RMED. NO SUITA BLE SPECI MEN RECEI TRAVON. Not Available [facility] (Lab) [address] [place], [address], 08/25/2023 17:17:49 Result Notes None recorded. Problems Name Problem SNOMED Code Status Onset Date Resolution Date Notes Provider Name and Address Organization Details Recorded Time Tobacco user 619905657 Active Not Available [facility] 3 02:53:04 Disorder of shoulder 703990779 Active Not Available [facility] 3 02:53:04 Liver function tests outside reference range 933278407 Active Not Available [facility] 3 02:53:04 Benign prostatic hyperplasi a 528169319 Active Not Available [facility] 3 02:53:04 Edema 594863227 Active Not Available [facility] 3 02:53:04 Adenocarci noma of esophagus 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 Active Not Available [facility] 3 02:53:05 Low back pain 093833773 Active Not Available [facility] 3 02:53:05 Thyroid function tests abnormal 983904149 Active Not Available [facility] 3 02:53:05 Chronic post-traum atic stress disorder 350748247 Active 2020 Not Available [facility] 3 02:53:05 Vitamin D deficiency 96254059 Active 2017 Not Available [facility] 3 02:53:05 Iron deficiency 49693874 Active 2021 Not Available [facility] 3 02:53:05 Neuropathy 361747596 Active Not Available [facility] 3 02:53:05 Dysphagia 97426919 Active Not Available [facility] 3 02:53:05 Onychomyco sis 232619801 Active Not Available [facility] 3 02:53:05 Cramp in lower limb 649888800 Active Not Available [facility] 3 02:53:05 Spasm 65769666 Active Not Available [facility] 3 02:53:05 Herpes zoster 7454842 Active Not Available [facility] 3 02:53:05 Upper respirator y infection 20501625 Active Not Available [facility] 3 02:53:05 Hyperglyce abimael 80862274 Active Not Available [facility] 3 02:53:05 Fatigue 17658120 Active Not Available [facility] 3 02:53:06 Mixed anxiety and depressive disorder 950977543 Active 2022 Eva Haji MD [address], [address], [place], [place], [address] , [employer] [facility] [employer] [facility] 3 10:02:59 Cobalamin deficiency 438774880 Active 2022 Eva Haji MD [address], [address], [place], [address] , [employer] [facility] [employer] [facility] 3 10:03:03 Anemia 052998247 Active 2022 Eva Haji MD [address], [address], [place], [address] , [employer] [facility] [employer] [facility] 3 10:03:36 Heavy drinker 94725699 Active 2022 Eva Haji MD [address], [address], [place], [address] , [employer] [facility] 3 09:56:40 Atopic dermatitis of scalp 497080926 Active 2023 PRAKASH Meadows [address], [address], [place], [address] , [employer] [facility] [employer] [facility] 4 09:52:26 Weakness of left hand [id number] 9109 Active 2023 SASHA Medina [address], [address], [place], [address] , [employer] [facility] 4 09:02:11 Loss of appetite 88944684 Active 2023 SASHA Delarosa [address], [address], [place], [address] , [facility] MD [employer] [facility] [employer] [facility] 4 10:15:16 Gastroesop hageal reflux disease without esophagiti s 399465830 Active 2024 PRAKASH Delarosa-Danae [address], [facility] [address], [place], [address] , [facility] [employer] 5 09:19:55 Problem Notes None recorded. Medical Equipment None Reported. Allergies No known drug allergies Medications Name Sig Start Date Stop Date Status Note LastModified by Organization Details LastModified Time amoxicill in 500 mg capsule TK 1 C PO Q 8 H UNTIL GONE. 08/05 completed Not Available Not Available Not Available pramipexo le 1 mg tablet TAKE 1 TABLET AT BEDTIME 06/14 completed Not Available Not Available Not Available gabapenti n 600 mg tablet TAKE 1 TABLET BY MOUTH TWICE DAILY active Not Available Not Available No t Available ketoconaz ole 2 % shampoo APPLY TO THE AFFECTED AREA(S), LATHER, LEAVE IN PLACE FOR 5 MINUTES, AND THEN RINSE OFF WITH WATER BY TOPICAL ROUTE ONCE DAILY active Not Available Not Available No t Available Carafate 100 mg/mL oral suspensio n TAKE 10 MLS BY MOUTH 4 TIMES A DAY 08/06 completed Not Available Not Available Not Available azithromy martha 250 mg tablet 08/05 completed Not Available Not Available Not Available sumatript an 100 mg tablet 1 po qday prn migraine 06/14 completed Not Available Not Available Not Available hydrocodo ne 5 mg-acetam inophen 325 mg tablet 01/08 completed Not Available Not Available Not Available prednison e 20 mg tablet Take 2 tablets every day by oral route for 5 days. active Not Available Not Available No t Available prochlorp erazine maleate 10 mg tablet TAKE 1 TABLET BY MOUTH EVERY 6 HOURS NEEDED FOR NAUSEA 08/06 completed Not Available Not Available Not Available valacyclo vir 500 mg tablet Take 2 tablets every 8 hours by oral route for 7 days. active Not Available Not Available No t Available omeprazol e 40 mg capsule,d elayed release TAKE 1 CAPSULE BY MOUTH TWICE DAILY active Not Available Not Available No t Available Kenalog 40 mg/mL suspensio n for injection 1 ml IM x 1 05/08 completed [facility] [id number] 28 Not Available Not Available Not Available cyprohept adine 4 mg tablet 1/2 tablet po TID for one week then increase to 1 tablet po TID active Not Available Not Available No t Available amoxicill in 875 mg tablet Take 1 tablet every 12 hours by oral route for 7 days. active Not Available Not Available No t Available famotidin e 20 mg tablet Take 1 tablet every day by oral route at bedtime. 2024 active Not Available Not Available Not Avai lable DOK 100 mg capsule TK ONE C PO BID 02/07 completed Not Available Not Available Not Available tamsulosi n 0.4 mg capsule Take 1 capsule every day by oral route. 10/25 completed Not Available Not Available Not Available ropinirol e 2 mg tablet 05/08 completed Not Available Not Available Not Available cephalexi n 500 mg capsule 08/05 completed Not Available Not Available Not Available pantopraz ole 40 mg tablet,de layed release 1 po bid 02/07 completed Not Available Not Available Not Available cyanocoba laney (vit B-12) 1,000 mcg/mL injection solution 1 ml IM x 1 06/14 completed Not Available Not Available Not Available mirtazapi ne 30 mg tablet Take 1 tablet(s ) every day by oral route. active Not Available Not Available No t Available esomepraz ole magnesium 40 mg capsule,d elayed release Take 1 capsule twice a day by oral route. active Not Available Not Available No t Available ropinirol e 0.5 mg tablet 1 po qhs1 active Not Available Not Available No t Available gabapenti n 300 mg capsule 1 po q6 hours 02/06 completed Not Available Not Available Not Available mirtazapi ne 45 mg tablet TAKE 1 TABLET BY MOUTH EVERY DAY active Not Available Not Available No t Available furosemid e 20 mg tablet TAKE 1 TABLET BY MOUTH EVERY DAY NEEDED 06/14 completed Not Available Not Available Not Available mirtazapi ne 15 mg tablet 1 po qhs 12/06 completed Not Available Not Available Not Available gabapenti n 100 mg capsule Take 1 capsule twice a day by oral route. 12/06 completed Not Available Not Available Not Available ergocalci ferol (vitamin D2) 1,250 mcg (50,000 unit) capsule TAKE 1 CAPSULE BY MOUTH EVERY WEEK active Not Available Not Available No t Available ibuprofen 600 mg tablet 02/12 completed Not Available Not Available Not Available levofloxa martha 500 mg tablet Take 1 tablet every 24 hours by oral route for 7 days. active Not Available Not Available No t Available methylpre dnisolone 4 mg tablets in a dose pack TK PO UTD QD FOR 6 DAYS 08/06 completed Not Available Not Available Not Available fluticaso ne propionat e 50 mcg/actua tion nasal spray,fallon pension 2 sprays IEN daily active Not Available Not Available No t Available amoxicill in 500 mg-potass ium clavulana te 125 mg tablet Take 1 tablet every 12 hours by oral route for 7 days. 04/15 completed Not Available Not Available Not Available ropinirol e 4 mg tablet 1 po tid 04/09 completed Not Available Not Available Not Available oxycodone 5 mg tablet TAKE 1 TABLET BY MOUTH EVERY 4 HOURS NEEDED FOR PAIN 04/22 completed Not Available Not Available Not Available clindamyc in 1 % lotion 02/07 completed Not Available Not Available Not Available Denta 5000 Plus 1.1 % cream APPLY ON TOOTHBRU SH A SMALL AMOUT TWICE DAILY 05/13 completed Not Available Not Available Not Available escitalop rosalva 10 mg tablet TAKE 1 TABLET BY MOUTH EVERY DAY active Not Available Not Available No t Available cyclobenz aprine 5 mg tablet TAKE 1 TABLET THREE TIMES A DAY NEEDED 02/07 completed Not Available Not Available Not Available bupropion HCl XL 150 mg 24 hr tablet, extended release TAKE 1 TABLET BY MOUTH EVERY DAY 08/13 completed Not Available Not Available Not Available hydrocodo ne 7.5 mg-acetam inophen 325 mg/15 mL oral solution TAKE 10ML EVERY 4 HOURS 08/06 completed Not Available Not Available Not Available megestrol 625 mg/5 mL (125 mg/mL) oral suspensio n SHAKE WELL AND TAKE 5 ML BY MOUTH DAILY prn 06/14 completed Not Available Not Available Not Available ProAir HFA 90 mcg/actua tion aerosol inhaler INL 2 PFS PO Q 4 H active Not Available Not Available No t Available Senna with Docusate Sodium 1 po bid prn 10/25 completed Not Available Not Available Not Available peg 3350-elec trolytes 236 gram-22.7 4 gram-6.74 gram-5.86 gram solution TAKE DIRECTED . 10/25 completed Not Available Not Available Not Available FeroSul 325 mg (65 mg iron) tablet TAKE 1 TABLET BY MOUTH EVERY DAY 01/15 completed Not Available Not Available Not Available ropinirol e ER 4 mg tablet,ex tended release 24 hr TAKE 1 TABLET AT BEDTIME 04/09 completed Not Available Not Available Not Available ropinirol e ER 6 mg tablet,ex tended release 24 hr Take 1 tablet every day by oral route. 08/05 completed Not Available Not Available Not Available Dexilant 60 mg capsule, delayed release TAKE 1 CAPSULE BY MOUTH EVERY DAY active Not Available Not Available No t Available potassium chloride ER 20 mEq tablet,ex tended release Take 1 tablet(s ) every day by oral route. 06/14 completed Not Available Not Available Not Available Afluria Qd 2019- (36 mos up)(PF)60 mcg (15 mcg x4)/0.5 mL IM syringe ADM 0.5ML IM UTD 06/14 completed Not Available Not Available Not Available Vitals Date Recorded Body height Body mass index (BMI) Body weight Body temperature Heart rate Oxygen saturation Oxygen saturation in Arterial blood by Pulse oximetry Systolic blood pressure Diastolic blood pressure Provider Name and Address Organization Details Last Updated DateTime 3 189.23 cm 18 kg/m2 30398.1 2 g 97.9 [degF] 80 /min 98 % 98 % 116 mm[Hg] 64 mm[Hg] Samara Dawn RN [facility] [employer] [facility] 3 09:40:40 Date Recorded Body height Body mass index (BMI) Body weight Body temperature Heart rate Oxygen saturation Oxygen saturation in Arterial blood by Pulse oximetry Systolic blood pressure Diastolic blood pressure Provider Name and Address Organization Details Last Updated DateTime 4 189.23 cm 18.2 kg/m2 25142.3 g 96.7 [degF] 96 /min 97 % 97 % 132 mm[Hg] 62 mm[Hg] EVIN Johnson [facility] [employer] [facility] 4 09:17:11 Date Recorded Body height Body mass index (BMI) Body weight Body temperature Heart rate Oxygen saturation Oxygen saturation in Arterial blood by Pulse oximetry Systolic blood pressure Diastolic blood pressure Provider Name and Address Organization Details Last Updated DateTime 4 189.23 cm 18.7 kg/m2 29054.6 7 g 99.5 [degF] 101 /min 98 % 98 % 144 mm[Hg] 76 mm[Hg] Mali Winslow RN [facility] [employer] [facility] 4 08:57:18 Date Recorded Body height Body mass index (BMI) Body weight Body temperature Heart rate Oxygen saturation Oxygen saturation in Arterial blood by Pulse oximetry Systolic blood pressure Diastolic blood pressure Provider Name and Address Organization Details Last Updated DateTime 4 189.23 cm 18.7 kg/m2 01762.6 7 g 97.7 [degF] 98 /min 98 % 98 % 150 mm[Hg] 80 mm[Hg] Samara Dawn RN [facility] [employer] [facility] 4 10:01:44 Date Recorded Body height Body mass index (BMI) Body weight Body temperature Heart rate Oxygen saturation Oxygen saturation in Arterial blood by Pulse oximetry Systolic blood pressure Diastolic blood pressure Provider Name and Address Organization Details Last Updated DateTime 5 189.23 cm 19.3 kg/m2 02629.0 4 g 97.7 [degF] 99 /min 97 % 97 % 124 mm[Hg] 68 mm[Hg] Samara Dawn RN [facility] [employer] [facility] 5 08:47:11 Social History Question Answer Notes LastModified by Organizat ion Details LastModified Time Tobacco Smoking Status Current Every Day Smoker Not Available [facility] 07/24/2022 02:31:30 What Is Your Level Of Alcohol Consumption? Occasional [id number] Information not available 07/24/2022 What Is Your Level Of Caffeine Consumption? Heavy [id number] Information not available 07/24/2022 In The 14 Days Before Symptom Onset, Have You Had Close Contact With A Person Who Is Under Investigation For COVID-19 While That Person Was Ill? No [id number] Information not available 07/24/2022 What Type Of Diet Are You Following? REGULAR [id number] Information not available 07/24/2022 What Is Your Occupation? [employer] [id number] Information not available 07/24/2022 How Much Tobacco Do You Smoke? 0.25 PPD [id number] Information not available 07/24/2022 Do You Use Sunscreen Routinely? No [id number] Information not available 07/24/2022 Sex: Unknown Functional Status None recorded. Mental Status None recorded. Family History Nothing Reported Notes:Adopted Medical History No medical history recorded. Immunizations Vaccine Type Date Status Note Provider Nam e and Address Organization Details Recorded Time Influenza, split virus, quadrivalent, preservative 0 completed Not Available [facility] 07/24/2022 03:02:14 Influenza, split virus, quadrivalent, PF 9 completed Not Available [facility] 07/24/2022 03:02:14 Influenza, split virus, quadrivalent, PF 8 completed Not Available [facility] 07/24/2022 03:02:14 Influenza, split virus, quadrivalent, preservative 6 completed Not Available [facility] 07/24/2022 03:02:14 Influenza, split virus, quadrivalent, PF 2 completed Not Available [facility] 07/24/2022 03:02:14 Pneumococcal conjugate PCV 13 6 completed Not Available [facility] 07/24/2022 03:02:15 pneumococcal polysaccharide PPV23 5 completed Not Available [facility] 07/24/2022 03:02:15 Influenza, split virus, quadrivalent, PF 1 completed Not Available [facility] 07/24/2022 03:02:15 Influenza, split virus, quadrivalent, PF 7 completed Not Available [facility] 07/24/2022 03:02:15 influenza, unspecified formulation 4 completed Samara Dawn RN null, [facility] [employer] [facility] 05/04/2024 10:02:13 RSV, recombinant, protein subunit RSVpreF, adjuvant reconstituted, 0.5 mL, PF 4 completed Samara Dawn RN null, [facility] [employer] [facility] 05/04/2024 10:02:54 Influenza, high-dose, quadrivalent, PF 3 completed Samara Dawn RN null, [facility] [facility] [employer] [facility] 04/22/2023 15:50:31 pneumococcal polysaccharide PPV23 3 completed EVIN Johnson, [facility] [employer] [facility] 04/22/2023 10:15:36 Past Encounters Encounter ID Performer Location Encounter Start Date Encounter Closed Date Diagnosis/Indication Diagnosis SNOMED-CT Code Diagnosis ICD10 Code Diagnosis Note [id number] [facility] [place] [address] [place] [address] 09/04/2020 00:00:00 09/21/2020 15:13:22 [id number] [facility] [place] [address] [place] [address] 09/29/2020 00:00:00 09/29/2020 12:02:13 [id number] [facility] [place] [address] [place] [address] 10/30/2020 00:00:00 10/30/2020 09:29:11 [id number] [facility] [place] [address] [place] [address] 02/06/2021 00:00:00 02/06/2021 09:44:38 [id number] [facility] [place] [address] [place] [address] 04/02/2021 00:00:00 04/02/2021 10:39:51 [id number] [facility] [place] [address] [place] [address] 05/09/2021 00:00:00 05/09/2021 10:04:46 [id number] [facility] [place] [address] [place] [address] 07/03/2021 00:00:00 07/03/2021 14:44:38 [id number] [facility] [place] [address] [place] [address] 10/01/2021 00:00:00 10/01/2021 09:31:17 [id number] [facility] [place] [address] [place] [address] 10/12/2021 00:00:00 10/12/2021 13:34:34 [id number] [facility] [place] [address] [place] [address] 11/06/2021 00:00:00 11/22/2021 10:30:50 [id number] [facility] [place] [address] [place] [address] 12/06/2021 00:00:00 12/17/2021 11:27:03 [id number] [facility] [place] [address] [place] [address] 01/14/2022 00:00:00 01/14/2022 10:12:54 [id number] [facility] [place] [address] [place] [address] 04/22/2022 00:00:00 04/22/2022 10:14:22 [id number] [facility] [place] [address] [place] [address] 05/28/2022 00:00:00 05/28/2022 11:04:16 [id number] Eva Haji MD [facility] [place] [address] [place] [address] 08/13/2022 09:41:38 08/13/2022 10:15:37 Mixed anxiety and depressive disorder 490900836 F41.8 stable on mirtazapin e 45 mg qhs and escitalopr am 10 mg daily Cobalamin deficiency 190 896378 E53.8 Spasm 87945272 R25.2 Vitamin D deficiency 347 06238 E55.9 Anemia 406568811 D64.9 [id number] Eva Haji MD [facility] [place] [address] [place] [address] 12/16/2022 08:46:50 12/16/2022 09:13:10 Cobalamin deficiency 603925901 E53.8 b12 shot todayconti nue daily oral e44sulottw labs in 4 weeks Mixed anxi ety and depressive disorder 175772304 F41.8 stable on mirtazapin e 45 mg qhs and escitalopr am 10 mg daily Spasm 18840887 R25.2 Vitamin D deficiency 347 06161 E55.9 Anemia 897042785 D64.9 continue daily mvirecheck labs in 4 weeks [id number] Eva Haji MD [facility] Primary Care [facility] [address] [facility] [address] [place] [address] 01/13/2023 09:43:51 01/13/2023 10:42:02 [id number] Eva Haji MD [facility] Primary [facility] [address] [facility] [address] [place] [address] 04/22/2023 09:33:49 04/22/2023 10:12:22 Administration of influenza vaccine 80617605 Z23 Cobalamin deficiency 190 994510 E53.8 b12 shot todayconti nue daily oral n93rlvgtaf labs Mixed anxi ety and depressive disorder 983130526 F41.8 stable on mirtazapin e 45 mg qhs and escitalopr am 10 mg daily Spasm 00745842 R25.2 Vitamin D deficiency 347 77182 E55.9 Anemia 252208312 D64.9 continue daily mvirecheck labs Active or passive immunization 180378262 Z23 Heavy drinker 36808535 F 10.10 Not yet ready to cut backf/u in 4 months or sooner if neededchec k labs [id number] Eva Haji MD [facility] Primary Care [facility] [address] [facility] [address] [place] [address] 08/21/2023 09:11:12 08/21/2023 09:52:54 Heavy drinker 36424670 F10.10 Not yet ready to cut backf/u in 4 months or sooner if neededchec k labs Cobalamin deficiency 190 756104 E53.8 b12 shot todayconti nue daily oral e97tigchiq labs Mixed anxi ety and depressive disorder 532909661 F41.8 stable on mirtazapin e 45 mg qhs and escitalopr am 10 mg daily Spasm 42803140 R25.2 Vitamin D deficiency 347 63011 E55.9 Anemia 147342016 D64.9 continue daily mvireche labs [id number] SASHA Medina [facility] Primary Care [address] [place] [address] 01/02/2024 08:51:35 01/02/2024 09:11:29 Weakness of left hand 0311644832 8331737 R29.898 noting weakness to left hand for approx 1 weekno specific recent injury or incidentwo ke up and states it didn't work no slurred speech, no vision changesdoe s note hitting his head on the 26 of November, did have some bleeding (no dizziness or nausea noted)decl eugenio [place] [id number] SASHA Delarosa [facility] [address] [place] [address] 05/04/2024 09:38:00 05/04/2024 10:38:05 Fatigue 35988307 R53.83 Will check labs as listed below. Loss of appetite 3095288 6 R63.0 Will start treatment as listed below. Patient will follow up in one month, sooner if needed. [id number] SASHA Delarosa [facility] Primary Care [address] [address] 06/14/2024 08:42:52 06/14/2024 09:12:15 Adult health examination 350987173 Z00.00 Discussed medication compliance and routine follow up.Discuss ed healthy diet and routine exercise.Elham shortiewed vaccine records and made recommenda tions as needed.Enc ouraged annual eye and dental exams, as well as twice yearly dental cleanings. Will check screening labs as listed below. Benign pro static hyperplasia 455414090 N40.0 Will check labs as listed below. Anemia 231730758 D64.9 Will check labs as listed below. Hyperglycemia 67626683 R 73.9 Will check labs as listed below. Vitamin D deficiency 347 22371 E55.9 Will check labs as listed below.Will refill meds as needed. Mixed anxi ety and depressive disorder 776162567 F41.8 YAMILET-7 (09/13)Doin g well on current medication s, will refill as needed.Den ies SI/HI. Loss of appetite 6416122 6 R63.0 Doing well on current medication s, will refill meds as needed. Neuropathy 855734239 G62 .9 Doing well on current medication s, will refill as needed Atopic tray matitis of scalp 867676724 L20.9 Doing well at this time. Gastroesop hageal reflux disease without esophagitis 215662084 K21.9 Doing well on current medication s, will refill meds at this time. Health Concerns Section Related Observation LastModified by Organization Detai ls LastModified Time None Recorded Concern Status LastModified by Organization Details LastModified Time None Recorded Advance Directives Directive None Recorded Payers Encounter Date Sequence Insurance Name Policy Number Policy Chacon Covered Member ID Chacon Member ID Guarantor Name 04/22/2023 2 WPS - FOR LIFE (MEDICARE SUPPLEMENT) Ruddy Pulido Brinegar [id number] Ruddy Salgado [employer] 04/22/2023 1 [employer] (PPO) [id number] Ruddy Salgado Brinegar [id number] Ruddy Salgado Brinegar 08/21/2023 2 WPS - FOR LIFE (MEDICARE SUPPLEMENT) Ruddy Pulido Brinegar [id number] Ruddy Salgado Brinegar 08/21/2023 1 [employer] (PPO) [id number] Ruddy Salgado Brinegar [id number] Ruddy Salgado Brinegar 01/02/2024 2 WPS - FOR LIFE (MEDICARE SUPPLEMENT) Ruddy Pulido Brinegar [id number] Ruddy Salgado Brinegar 01/02/2024 1 [employer] (PPO) [id number] Ruddy Naomi Brinegar [id number] Ruddy Naomi Brinegar 05/04/2024 2 WPS - FOR LIFE (MEDICARE SUPPLEMENT) Ruddy Pulido Brinegar [id number] Ruddy Salgado Brinegar 05/04/2024 1 [employer] (PPO) [id number] Ruddy Salgado Brinegar [id number] Ruddy Naomi Brinegar 06/14/2024 2 WPS - FOR LIFE (MEDICARE SUPPLEMENT) Ruddy Shepard [id number] Ruddy Shepard 06/14/2024 1 [employer] (PPO) [id number] Ruddy Shepard [id number] Ruddy Shepard Notes Date Note Type Note Provider Name and Address Organization Details Recorded Time 04/22/2023 text/html here to f/u, he did not start bupropion due to concerns about the s/e listed on the insert. He is taking mirtazapine 45 mg qhs and escitalopram 10 mg daily. Mood is doing well, appetite is good. No chest pain, no sob. He continues to have muscle spasms update 12/16/22: He is tolerating multivitamin with iron and oral b12 daily. No real change in spasms. No chest pain or sob. update 04/22/23: Has been drinking more liquor, not yet ready to cut back. No other interval change. Eva Haji MD [address], [place], [address], [employer] 04/22/2023 10:02:06 08/21/2023 text/html here to f/u, he did not start bupropion due to concerns about the s/e listed on the insert. He is taking mirtazapine 45 mg qhs and escitalopram 10 mg daily. Mood is doing well, appetite is good. No chest pain, no sob. He continues to have muscle spasms update 12/16/22: He is tolerating multivitamin with iron and oral b12 daily. No real change in spasms. No chest pain or sob. update 04/22/23: Has been drinking more liquor, not yet ready to cut back. No other interval change. update 08/21/23: No interval change Eva Haji MD [address], [place], [address], [employer] 08/21/2023 09:37:08 01/02/2024 text/html pt is here for f/u PRAKASH Rivera-Danae [address], [address], [place], [address], [employer] 01/02/2024 09:12:51 05/04/2024 text/html Patient is a 64 year old male that presents to the office for follow up. 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 Patient has been released from neurology. Patient continues with decreased appetite, has been an ongoing issue since having cancer. Patient reports there are some weeks he only eats one or two bites of food daily.Patient also reports fatigue and lack of motivation for the last 6-7 months. SASHA Delarosa [address] [facility], [facility] [address], [place], [address], [employer] 05/05/2024 09:08:07 06/14/2024 text/html Patient is a 64 year old male that presents to the office for annual wellness. Patient reports he is doing well and has no medical concerns at this time including chest pain and shortness of breath. Vitamin D Deficiency: Vitamin D 50,000 units every weekMixed Anxiety and Depressive Disorder: Escitalopram 10mg daily, Mirtazapine 45mg dailyLoss of Appetite: Cyproheptadine 4mg TIDNeuropathy: Gabapentin 600mg BIDAtopic Dermatitis: Ketoconazole 2% ShampooGERD: Famotidine 20mg QHS, Omeprazole 40mg BID [id number] redColonoscopy- ordered (2009)Oxe-GVRUedko-b eclinesTdap-awareShi ngles-awarePneumonia -UTDRSV-UTD SASHA Delarosa [address], [address], [place], [address], [employer] 06/14/2024 09:20:16
--- OUTSIDE RECORDS SUMMARY | 2024-08-20 16:33 | XMS_ITS | Referral Summary ---
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 Gender Identity Not on file Sexual Orientation Not on file Last Filed Vital Signs Vital Sign Reading Time Taken Comments Blood Pressure 138/68 02/05/2024 11:50 AM CDT Pulse 79 02/05/2024 11:50 AM CDT Temperature 36.6 C (97.8 F) 03/20/2020 10:37 AM CDT Respiratory Rate 16 03/20/2020 10:37 AM CDT Oxygen Saturation 100% 04/25/2021 9:32 AM SCREEN ROLLER Inhaled Oxygen Concentration - - Weight 67.6 kg (149 lb) 03/26/2024 3:05 PM CDT Height 182.9 cm (6') 03/26/2024 3:05 PM CDT Body Mass Index 20.21 03/26/2024 3:05 PM CDT Plan of Treatment Not on file Insurance [facility] CLAIMS [employer] CHOICE MEDICARE PPO FOR LIFE Care Teams Aix Architect Relationship Specialty Start Date End Date Dante Almeida NP [address] [place] [address] [place] [address] PCP - General Family Medicine 02/05/24 Toby Black MD Radiation Oncologist Radiation Oncology 01/23/21
--- OUTSIDE RECORDS SUMMARY | 2024-08-20 17:34 | XMS_ITS | Referral Summary ---
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 Gender Identity Not on file Sexual Orientation Not on file Last Filed Vital Signs Vital Sign Reading Time Taken Comments Blood Pressure 138/68 02/05/2024 11:50 AM CDT Pulse 79 02/05/2024 11:50 AM CDT Temperature 36.6 C (97.8 F) 03/20/2020 10:37 AM CDT Respiratory Rate 16 03/20/2020 10:37 AM CDT Oxygen Saturation 100% 04/25/2021 9:32 AM GROUND OPERATIONS SUPERVISOR Inhaled Oxygen Concentration - - Weight 67.6 kg (149 lb) 03/26/2024 3:05 PM CDT Height 182.9 cm (6') 03/26/2024 3:05 PM CDT Body Mass Index 20.21 03/26/2024 3:05 PM CDT Plan of Treatment Not on file Insurance [facility] CLAIMS [employer] CHOICE MEDICARE PPO FOR LIFE Care Teams Document Examiner Relationship Specialty Start Date End Date Dante Almeida NP [address] [place] [address] [place] [address] PCP - General Family Medicine 02/05/24 Toby Black MD Radiation Oncologist Radiation Oncology 01/23/21
--- OUTSIDE RECORDS SUMMARY | 2024-08-20 17:34 | XMS_ITS | Continuity of Care Document ---
Author Name [facility] Organization [facility] Care Team Providers Care Insurance Collector Name Role Phone [facility] Unavailable Unavailable Encounters [...] ADM Date DC Date Status Disposition Source [facility] Outpatient Encounter [id number] 01/12 [facility]
--- OUTSIDE RECORDS SUMMARY | 2024-08-20 17:34 | XMS_ITS | Clinical Summary ---
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 Gender Identity Not on file Sexual Orientation Not on file Obstetrics History Last Filed Vital Signs Vital Sign Reading Time Taken Comments Blood Pressure 138/68 02/05/2024 11:50 AM CDT Pulse 79 02/05/2024 11:50 AM CDT Temperature 36.6 C (97.8 F) 03/20/2020 10:37 AM CDT Respiratory Rate 16 03/20/2020 10:37 AM CDT Oxygen Saturation 100% 04/25/2021 9:32 AM MATTRESS AND FOUNDATION SEWER Inhaled Oxygen Concentration - - Weight 67.6 [...] 023, 05/13/2016, 04/19/2015, Additional history exists Insurance [facility] CLAIMS [employer] CHOICE MEDICARE PPO FOR LIFE Care Teams Bandage Maker Relationship Specialty Start Date End Date Dante Almeida NP [address] [place] [address] PCP - General Family Medicine 02/05/24 Toby Black MD Radiation Oncologist Radiation Oncology 01/23/21
--- NOTE | 2024-08-20 17:43 | ED.FALL ---
HPI - Fall General Chief Complaint: Fall Stated Complaint: GLF fall Time Seen by Provider: 08/20/24 17:14 History of Present Illness HPI Narrative: 64-year-old male presenting to the ER for evaluation of left elbow and shoulder injury after mechanical fall. He states he tripped over his dog and landed onto his left side. Did not hit his head or lose consciousness. Landed on his left elbow. Does have a skin tear on his left elbow and is complaining of significant shoulder pain. 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 Was otherwise in his normal state of health. No anticoagulation use. States he is having pain in his left elbow and left shoulder, received morphine by EMS. Related Data Home Medications ?Medication ?Instructions ?Recorded ?Confirmed ?Last Taken ?Type cardioplegic no.20 (maint 4:1) 20 ml perfusion 05/28/21 05/28/21 Unknown History mEq/810 mL (potassium) perfusion (Cardioplegia Maintenance 4:1) furosemide 20 mg tablet 10 mg PO QAM 05/28/21 05/28/21 Unknown History gabapentin 600 mg tablet 600 mg PO BID 05/28/21 05/28/21 Unknown History megestrol 625 mg/5 mL (125 mg/mL) 625 mg PO DAILY 05/28/21 05/28/21 Unknown History oral suspension mirtazapine 15 mg tablet 15 mg PO DAILY 05/28/21 05/28/21 Unknown History omeprazole 40 mg capsule,delayed 40 mg PO BID 05/28/21 05/28/21 Unknown History release oxycodone 5 mg capsule 5 mg PO Q8H PRN 05/28/21 05/28/21 Unknown History pramipexole 1 mg tablet 1 mg PO QHS 05/28/21 05/28/21 Unknown History sumatriptan succinate 100 mg tablet 100 mg PO ONCE 05/28/21 05/28/21 Unknown History Allergies Allergy/AdvReac Type Severity Reaction Status Date / Time No Known Allergies Allergy Verified 05/28/21 09:03 Review of Systems Review of Systems: As [facility] Past Medical History Medical History Head ache Esophageal cancer Social History Social History Smoking packs per day: 5 Smoking cigarettes per day: 100.0 Smoking status: Current some day smoker Alcohol intake: current Alcohol use details: social Substance use: never Exam Narrative: GENERAL: [Well-appearing, well-nourished, and in no acute distress.] HEAD: [Normocephalic, atraumatic.] EYES: [PERRLA and EOMI.] ENT: Nares clear, no rhinorrhea or epistaxis. Mucous membranes moist. NECK: Supple. CHEST: [Clear to auscultation. No respiratory distress.] HEART: [Regular rate and rhythm]. No murmur heard. [Normal peripheral pulses.] ABDOMEN: [Soft, nondistended], [nontender], [No rigidity or guarding] EXTREMITIES: Tenderness to palpation of the proximal port of the left humerus, no overlying skin changes in the shoulder region. Elbow has some tenderness to palpation of the medial epicondyle, overlying skin tear of the olecranon process, mild restricted range of motion secondary to pain. Complementary Health Therapists strength 5/5, able to oppose each digit make a thumbs-up sign. No midline tenderness, no scapular tenderness. No neck tenderness. SKIN: Warm, dry, no rash. NEURO: [No focal deficits]. Alert and oriented [x3.] PSYCH: [Normal mood and affect.] Course Vital Signs Vital signs: Vital Signs Temperature 36.4 C 08/20/24 16:31 Pulse Rate 79 08/20/24 16:31 Respiratory Rate 18 08/20/24 16:31 Blood Pressure 96/50 L 08/20/24 16:31 Pulse Oximetry 98 08/20/24 16:31 Oxygen Delivery Room Air 08/20/24 16:31 Temperature 36.4 C 08/20/24 16:31 Pulse Rate 79 08/20/24 16:31 Respiratory Rate 18 08/20/24 16:31 Blood Pressure 96/50 L 08/20/24 16:31 Pulse Oximetry 98 08/20/24 16:31 Oxygen Delivery Room Air 08/20/24 16:31 MDM - Fall MDM Narrative Medical decision making narrative: 64-year-old male presenting after mechanical fall at home. He landed onto his left elbow as complain of elbow and shoulder pain he has a skin tear on his left olecranon process of the elbow. Range of motion distally and neuro vasculature distally is intact. Vital signs show no tachycardia, fever or hypoxia. His blood pressure is slightly soft but in line with his chronic levels. He does have a skin tear and no recent tetanus update. Tdap was ordered, x-rays of the elbow and shoulder were obtained. He was given morphine for analgesia. Suspicion presently is for potential olecranon versus shoulder fracture, less likely displacement or dislocation. No current evidence of vascular or neurological injury. Patient shoulder x-rays independent reviewed does have evidence of a nondisplaced surgical neck humerus fracture. Elbow x-ray shows no acute osseous abnormalities. Wound dressing was applied to his skin tear. Shoulder immobilizer was applied, he will be given orthopedics follow-up instructions and pain control medications were sent to his pharmacy. Patient was comfortable with this plan of care and safely discharged. Medical Records Attestation: I reviewed the patient's medical records. Imaging Data Attestation: I personally reviewed and interpreted this imaging study as follows: My impression: Impressions Shoulder X-Ray 08/20/24 16:58 IMPRESSION: Fracture of the surgical neck of the left humerus. Elbow X-Ray 08/20/24 18:55 IMPRESSION: No acute osseous abnormality left elbow. Discharge Plan Discharge Clinical Impression: Closed left humeral fracture, Fall Patient Disposition: Home, Self-Care Condition: Stable Instructions: Antibiotic Form, Arm Fracture in Adults (DC), Shoulder Immobilizer (ED) Additional Instructions: Your x-ray shows a left humeral neck fracture, no elbow dislocation or fracture. You do have a skin tear in that area which will need some dressings. Maintain the shoulder immobilizer for comfort and we will send you home with pain medications as needed. Follow-up with the provider orthopedic specialists. Return with any new or worsening concerns. Patient Language: Vietnamese Prescriptions: New hydrocodone-acetaminophen 5-325 mg tablet 1 tablet PO Q8H PRN (Reason: pain) Qty: 14 0RF methocarbamol 750 mg tablet 750 mg PO TID PRN (Reason: pain) Qty: 20 0RF ibuprofen 600 mg tablet 600 mg PO TID PRN (Reason: pain) Qty: 20 0RF No Action omeprazole 40 mg capsule,delayed release(DR/EC) 40 mg PO BID gabapentin 600 mg tablet 600 mg PO BID furosemide 20 mg tablet 10 mg PO QAM Cardioplegia Maintenance 4:1 20 mEq/810 mL (potassium) solution perfusion oxycodone 5 mg capsule 5 mg PO Q8H PRN mirtazapine 15 mg tablet 15 mg PO DAILY pramipexole 1 mg tablet 1 mg PO QHS megestrol 625 mg/5 mL (125 mg/mL) suspension 625 mg PO DAILY sumatriptan succinate 100 mg tablet 100 mg PO ONCE Follow-up/Referrals: Isai Lindquist MD [Physician] - 1 Week (Left humeral neck fracture) Adithya,Eva Del Valle MD [Primary Care Provider] - Time of Disposition: 19:22
[2024-08-20] MEDS: MORPHINE SULFATE (*CRX) 4 MG/ML INJ IV PUSH (18:10)
[2024-08-20] MEDS: TETANUS,DIPHTHERIA,AC PERTUSSIS ADULT (0.5 ML) BOOSTRIX IM (18:11)
== END 2024-08-20 20:39 | disposition home or self-care (01) ==
PROVIDERS: Emergency Provider Student in an Organized Health Care Education/Training Program; PCP Family Medicine
DX: S42.212A Unspecified displaced fracture of surgical neck of left humerus, initial encounter for closed fracture (principal); F17.210 Nicotine dependence, cigarettes, uncomplicated; Z23 Encounter for immunization; Z85.01 Personal history of malignant neoplasm of esophagus; W01.0XXA Fall on same level from slipping, tripping and stumbling without subsequent striking against object, initial encounter
CPT/HCPCS: 73030; 73070; 90471; 90715; 96374; 99284; J2270